=== PATIENT | female | born 1985 | race Caucasian/White ===

== ENCOUNTER 2020-06-27 18:59 | Outpatient (REF) | payer MEDICAID, SELFPAY ==
[2020-06-27 20:16] LABS: Calculated LDL 121 mg/dL (<100); Cholesterol 220 mg/dL (<200); HDL Cholesterol 73 mg/dL (40-60); Triglyceride 130 mg/dL (<150)
== END 2020-06-27 19:00 | disposition home or self-care (01) ==
LOC: NCHCN 18:59
PROVIDERS: Visit Provider Family Medicine
DX: Z13.220 Encounter for screening for lipoid disorders (principal)
CPT/HCPCS: 80061